=== PATIENT | female | born 1930 | race Caucasian/White ===

== ENCOUNTER 2019-08-17 23:11 | Emergency (ER) | payer MEDICARE, OTHER ==
--- NOTE | 2019-08-17 23:30 | ED Physician Documentation ---
History of Present Illness - Stated complaint Stated Complaint: left lower back pain - Chief complaint Chief Complaint: Back Pain - History obtained from History obtained from: Patient (The patient is an 89-year-old female who presents from an assisted living facility for 5-day history of lower back pain without fall or injury denies fevers, urinary incontinence denies any dysuria hematuria or flank pain she reports that she is having lower back pain bilateral lumbar region without bowel or bladder dysfunction no saddle anesthesia no urinary retention no history of IV drug abuse no history of spinal surgery.Reports she is able to ambulate with a walker at her baseline.) Review of Systems Constitutional: reports: Reviewed and negative Eyes: reports: Reviewed and negative Ears: reports: Reviewed and negative Nose: reports: Reviewed and negative Throat: reports: Reviewed and negative Cardiac: reports: Reviewed and negative Respiratory: reports: Reviewed and negative GI: reports: Reviewed and negative : reports: Reviewed and negative Skin: reports: Reviewed and negative Musculoskeletal: reports: Back pain Neurologic: reports: Reviewed and negative Psychiatric: reports: Reviewed and negative Endocrine: reports: Reviewed and negative Immunocompromised: reports: Reviewed and negative PD PAST MEDICAL HISTORY - Past Medical History Cardiovascular: Hypertension Respiratory: Asthma, Shortness of breath Endocrine/Autoimmune: None GI: None : Incontinence, Frequency HEENT: None Psych: None Musculoskeletal: Osteoarthritis Derm: None - Past Surgical History Past Surgical History: Yes 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: Hysterectomy, Oophrectomy - Present Medications Home Medications: Ambulatory Orders Medication Instructions Recorded Confirmed Losartan/Hydrochlorothiazide 1 each PO DAILY 08/28/15 08/17/19 [Hyzaar 50-12.5 Tablet] - Allergies Allergies/Adverse Reactions: Allergies Allergy/AdvReac Type Severity Reaction Status Date / Time No Known Drug Allergies Allergy Verified 08/29/15 20:11 - Social History Does the pt smoke?: No Smoking Status: Never smoker Does the pt drink ETOH?: No Does the pt have substance abuse?: No PD ED PE NORMAL - Vitals Vital signs reviewed: Yes - General General: Alert and oriented X 3, No acute distress, Well developed/nourished - HEENT HEENT: Atraumatic, PERRL, Moist mucous membranes, Pharynx benign, Dentition benign - Neck Neck: Supple, no meningeal sign - Cardiac Cardiac: RRR, No murmur, Strong equal pulses - Respiratory Respiratory: No respiratory distress, Clear bilaterally, Other - Abdomen Abdomen: Normal bowel sounds, Soft, Non tender, Non distended - Back Back: No CVA TTP, No spinal TTP, Other (There is point tenderness over bilateral sacroiliac joints. 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, No motor deficit, No sensory deficit, Normal speech - Psych Psych: Normal mood, Normal affect Results - Vitals Vitals: Vital Signs - 24 hr 08/17/19 23:19 Temperature 36.2 C L Heart Rate 67 Respiratory 16 Rate Blood Pressure 137/89 H O2 Saturation 97 Oxygen O2 Source Room air - Labs Labs: Laboratory Tests 08/18/19 00:06 Urine Color YELLOW Urine Clarity CLEAR Urine pH 5.5 Ur Specific [place] 1.020 Urine Protein NEGATIVE Urine Glucose (UA) NEGATIVE Urine Ketones NEGATIVE Urine Occult Blood NEGATIVE Urine Nitrite NEGATIVE Urine Bilirubin NEGATIVE Urine Urobilinogen 0.2 (NORMAL) Ur Leukocyte Esterase NEGATIVE Ur Microscopic Review NOT INDICATED Urine Culture Comments NOT INDICATED PD MEDICAL DECISION MAKING - ED course Complexity details: considered differential (Patient with reproducible back pain with pinpoint tenderness to bilateral sacroiliac joints. She has No red flags on history or physical exam. Her radiographs show degenerative joint disease.Patient has not tried any treatment prior to arrival we will provide an intramuscular injection of steroids and discharge this patient with close follow-up.) Departure - Departure Disposition: 01 Home, Self Care Clinical Impression: Sacroiliac inflammation, DJD (degenerative joint disease), lumbosacral Condition: Stable Instructions: ED Degenerative Joint Disease Follow-Up: Mary Johnson DO [Primary Care Provider] - Within 1 week
--- NOTE | 2019-08-18 00:13 | XRAY Report ---
Reason: pain Procedure Date: 08/18/2019 Accession Number: [id number] / [id number] Procedure: XR - Lumbar Spine 2 View CPT Code: Final Report FULL RESULT: EXAM: LUMBOSACRAL SPINE RADIOGRAPHY EXAM DATE: 08/18/2019 12:03 AM. CLINICAL HISTORY: Pain. COMPARISONS: None. TECHNIQUE: 3 views. FINDINGS: Alignment: Curvature of the lumbar spine with convexity to the right centered at L2. No subluxations. Bones: Vertebral body heights are maintained, with no obvious fractures identified. Degenerative endplate changes are present throughout. Disks: Disk height loss at every level. Facets: Facet arthropathy at L4-L5 and L5-S1, with lesser involvement in the upper lumbar spine. Sacroiliac Joints: Unremarkable. Soft Tissues: Normal. The visualized bowel gas pattern is normal. IMPRESSION: Multilevel degenerative disk disease, no fracture or vertebral body height loss is identified. If symptoms persist, consider MRI which would be more sensitive for subtle compression fractures. [facility]
[2019-08-18 00:25] LABS: BILIRUBIN,URINE NEGATIVE (NEGATIVE); CLARITY,URINE CLEAR (CLEAR); GLUCOSE, URINE (UA) NEGATIVE (NEGATIVE); KETONES,URINE (UA) NEGATIVE (NEGATIVE); LEUKOCYTE ESTERASE, URINE NEGATIVE (NEGATIVE); NITRITE,URINE NEGATIVE (NEGATIVE); OCCULT BLOOD,URINE NEGATIVE (NEGATIVE); PH,URINE 5.5 PH (5.0-7.5); PROTEIN,URINE NEGATIVE (NEGATIVE); UROBILINOGEN,URINE 0.2 (NORMAL) E.U./dL (NORMAL)
[2019-08-18] MEDS ORDERED: DEXAMETHASONE 10 MG/ML VIAL IM STA (00:32)
[2019-08-18 00:57] VITALS: BP 168/72
== END 2019-08-18 00:57 | disposition home or self-care (01) ==
LOC: ED 23:11
DX: M46.1 Sacroiliitis, not elsewhere classified (principal); M47.897 Other spondylosis, lumbosacral region; I10 Essential (primary) hypertension
CPT/HCPCS: 72100; 81001; 81003; 87086; 96372; 99283; 99284

== ENCOUNTER 2021-09-25 09:39 | Outpatient (CLI) | payer MEDICARE, OTHER, MEDICAID | END 2021-09-25 09:40 | disposition critical access hospital (66) | LOC: EMS 09:39 | DX: R60.1 Generalized edema (principal); M79.662 Pain in left lower leg; M79.661 Pain in right lower leg | CPT/HCPCS: A0425; A0429 ==

== ENCOUNTER 2021-09-25 09:57 | Emergency (ER) | payer MEDICARE, OTHER, MEDICAID ==
--- NOTE | 2021-09-25 10:10 | ED Physician Documentation ---
History of Present Illness - Stated complaint Stated Complaint: LEG SWELLING/PAIN - Chief complaint Chief Complaint: Cardiac - History obtained from History obtained from: Patient, EMS - Additonal information Additional information: 89-year-old female with a history of dementia is brought to the emergency department by paramedics with a chief complaint of anasarca and weeping. The patient is a DO NOT RESUSCITATE comfort measures only patient and she appears uncomfortable with the amount of swelling that she has. She is complaining of some pain to the back of her calf on the right side. Review of Systems Unable to obtain: Confused, Dementia, Other (very hard of hearing) Constitutional: denies: Fever Ears: reports: Loss of hearing (similar to always). 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, Oophrectomy - Present Medications Home Medications: Ambulatory Orders Medication Instructions Recorded Confirmed Losartan [Cozaar] 50 mg PO DAILY 09/25/21 09/25/21 hydroCHLOROthiazide [Hydrodiuril] 12.5 mg PO DAILY 09/25/21 09/25/21 - Allergies Allergies/Adverse Reactions: Allergies Allergy/AdvReac Type Severity Reaction Status Date / Time adhesive tape Allergy Hives Verified 09/25/21 10:06 - Social History Does the pt smoke?: No Smoking Status: Never smoker Does the pt drink ETOH?: No Does the pt have substance abuse?: No - Immunizations Immunizations are current?: No PD ED PE NORMAL - Vitals Vital signs reviewed: Yes - General General: No acute distress, Well developed/nourished, Other (pale appearing female is hard of hearing but seems agreeable and does not appear to be in distress. ) - HEENT HEENT: Atraumatic, PERRL, EOMI, Other (pale conjunctiva) - Neck Neck: Supple, no meningeal sign, No bony TTP - Cardiac Cardiac: RRR, No murmur - Respiratory Respiratory: No respiratory distress, Clear bilaterally - Abdomen Abdomen: Soft, Non tender - Back Back: No CVA TTP, No spinal TTP - Derm Derm: Warm and dry, Other (pale ) - Extremities Extremities: No deformity, Other (edema to all ext weeping in the LE bilat. 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, No motor deficit, No sensory deficit, Normal speech Eye Opening: Spontaneous Motor: Obeys Commands Verbal: Confused GCS Score: 14 - Psych Psych: Normal mood, Normal affect Results - Vitals Vitals: Vital Signs - 24 hr 09/25/21 09/25/21 09/25/21 10:01 12:05 14:00 Temperature 36.4 C L 36.5 C 36.5 C Heart Rate 74 70 75 Respiratory 16 12 12 Rate Blood Pressure 112/47 L 114/50 L 124/69 O2 Saturation 100 100 100 Oxygen O2 Source Room air - Labs Labs: Laboratory Tests 09/25/21 09/25/21 09/25/21 11:57 11:57 11:57 WBC 8.7 RBC 3.58 L Hgb 10.9 L Hct 33.5 L MCV 93.6 MCH 30.4 MCHC 32.5 RDW 15.1 H Plt Count 170 MPV 11.2 H Neut # (Auto) 5.8 Lymph # (Auto) 1.7 [place] # (Auto) 0.8 Eos # (Auto) 0.2 Baso # (Auto) 0.1 Absolute Nucleated RBC 0.00 Nucleated RBC % 0.0 PT INR APTT Sodium 135 Potassium 4.2 Chloride 103 Carbon Dioxide 22 Anion Gap 10.0 BUN 16 Creatinine 0.9 Estimated GFR (MDRD) 59 L Glucose 80 Calcium 8.3 L Total Bilirubin 0.8 AST 20 ALT 14 Alkaline Phosphatase 85 B-Natriuretic Peptide Total Protein 6.1 L Albumin 2.9 L Globulin 3.2 Albumin/Globulin Ratio 0.9 L Lipase 28 TSH 3.55 Blood Type Antibody Screen 09/25/21 09/25/21 09/25/21 11:57 11:57 12:11 WBC RBC Hgb Hct MCV MCH MCHC RDW Plt Count MPV Neut # (Auto) Lymph # (Auto) [place] # (Auto) Eos # (Auto) Baso # (Auto) Absolute Nucleated RBC Nucleated RBC % PT 11.4 INR 1.0 APTT 20.2 L Sodium Potassium Chloride Carbon Dioxide Anion Gap BUN Creatinine Estimated GFR (MDRD) Glucose Calcium Total Bilirubin AST ALT Alkaline Phosphatase B-Natriuretic Peptide 531 H Total Protein Albumin Globulin Albumin/Globulin Ratio Lipase TSH Blood Type A POSITIVE Antibody Screen NEGATIVE Procedures - IVC sono (time) 1005 Bedside IVC sono: IVC measures (cm) (1.24), Dehydration (est <1 liter) PD MEDICAL DECISION MAKING - ED course Complexity details: reviewed old records, reviewed results, re-evaluated marcial nt, considered differential, d/w patient ED course: 89-year-old female hard of hearing with dementia who is comfort measures presents to the emergency department with anasarca with some weeping on her legs and she appears pale. Her laboratory studies are unremarkable with the exception of some low albumin and total protein. Her kidney function is normal, her BNP is minimally elevated but her IVC collapses normally. Her closest friend is Jason who sees her about every other week. He asked the nurses at [place] to check on her legs as they appear to be weeping. She presents here today not knowing why she is here. I consulted our hospitalist about treatment of this anasarca and she recommended cleaning the weeping areas and applying compression dressing with daily changes and avoiding diuretic use. Departure - Departure Disposition: 01 Home, Self Care Clinical Impression: Anasarca Condition: Stable Instructions: ED Edema Legs Bilateral Follow-Up: Mana King PA-C [Primary Care Provider] - Comments: Apple, today it looks like the swelling you have in general is worse than usual. There is some weeping to your legs and we have cleaned this up and dr essed the legs with some compression dressing. This will help the swelling. This type of dressing should be replaced daily. The expectation is reduced swelling in your lower extremities and resolution of the weeping. No additional medications will be required today.
--- NOTE | 2021-09-25 12:05 | CONSULTATION NOTE ---
Consultation Report: called in by Dr. Velazquez to assist with IV placement. Attempted PIVx2 in bilat upper extremeties with US guidance. Unable to place. Called patient's son, Andres, to get consent for CVL insertion. Attempted x1 stick in right IJ. Wire would not thread past about 10 cm. Left short catheter in place to use. Notified RN and Dr. Velazquez that this line is a PIV in Right IJ and not centrally located.
[2021-09-25 12:06] LABS: BASOPHILS # (AUTO) 0.1 10^3/uL (0.0-0.1); BASOPHILS % (AUTO) 0.6 %; EOSINOPHILS # (AUTO) 0.2 10^3/uL (0.0-0.7); EOSINOPHILS % (AUTO) 2.2 %; HCT - HEMATOCRIT 33.5 % (37.0-47.0); HGB - HEMOGLOBIN 10.9 g/dL (12.0-16.0); LYMPHOCYTES # (AUTO) 1.7 10^3/uL (1.5-3.5); LYMPHOCYTES % (AUTO) 20.1 %; MEAN CORPUSCULAR HEMOGLOBIN 30.4 pg (27.0-31.0); MEAN CORPUSCULAR HGB CONC 32.5 g/dL (32.0-36.0); MEAN CORPUSCULAR VOLUME 93.6 fL (81.0-99.0); MEAN PLATELET VOLUME 11.2 fL (7.9-10.8); MONOCYTES # (AUTO) 0.8 10^3/uL (0.0-1.0); MONOCYTES % (AUTO) 9.6 %; NEUTROPHILS # (AUTO) 5.8 10^3/uL (1.5-6.6); NEUTROPHILS % (AUTO) 67.2 %; PLT - PLATELET COUNT 170 10^3/uL (130-450); RED BLOOD COUNT 3.58 10^6/uL (4.20-5.40); RED CELL DISTRIBUTION WIDTH 15.1 % (12.0-15.0); WHITE BLOOD COUNT 8.7 x10^3/uL (4.8-10.8)
[2021-09-25 12:18] LABS: PT - PROTHROMBIN TIME 11.4 secs (9.9-12.6)
[2021-09-25 12:25] LABS: PARTIAL THROMBOPLASTIN TIME 20.2 secs (24.9-33.3)
[2021-09-25 12:27] LABS: ALBUMIN 2.9 g/dL (3.2-5.5); ALBUMIN/GLOBULIN RATIO 0.9 (1.0-2.2); BILIRUBIN,TOTAL 0.8 mg/dL (0.2-1.0); CALCIUM 8.3 mg/dL (8.5-10.3); CREATININE 0.9 mg/dL (0.4-1.0); POTASSIUM 4.2 mmol/L (3.5-5.0); TOTAL PROTEIN 6.1 g/dL (6.7-8.2)
[2021-09-25] MEDS ORDERED: FUROSEMIDE 40 MG/4 ML VIAL IVP STA (12:53)
[2021-09-25 14:47] LABS: BILIRUBIN,URINE NEGATIVE (NEGATIVE); GLUCOSE, URINE (UA) NEGATIVE (NEGATIVE); KETONES,URINE (UA) NEGATIVE (NEGATIVE); LEUKOCYTE ESTERASE, URINE NEGATIVE (NEGATIVE); NITRITE,URINE NEGATIVE (NEGATIVE); OCCULT BLOOD,URINE NEGATIVE (NEGATIVE); PROTEIN,URINE NEGATIVE (NEGATIVE); UROBILINOGEN,URINE 0.2 (NORMAL) E.U./dL (NORMAL)
[2021-09-25 14:48] LABS: CLARITY,URINE CLEAR (CLEAR)
[2021-09-25 15:18] VITALS: BP 139/127
== END 2021-09-25 16:03 | disposition home or self-care (01) ==
LOC: EDUNIT# → ED 09:57
DX: R60.1 Generalized edema (principal); Z66 Do not resuscitate; F03.90 Unspecified dementia, unspecified severity, without behavioral disturbance, psychotic disturbance, mood disturbance, and anxiety; I10 Essential (primary) hypertension
CPT/HCPCS: 36415; 80053; 81001; 81003; 83690; 83880; 84443; 85025; 85610; 85730; 86850; 86900; 86901; 87086; 96374; 99283

== ENCOUNTER 2021-09-25 16:02 | Outpatient (CLI) | payer MEDICARE, OTHER, MEDICAID | END 2021-09-25 16:03 | disposition home or self-care (01) | LOC: EMS 16:02 | PROVIDERS: ATTEND Emergency Medicine | DX: R41.0 Disorientation, unspecified (principal); R60.1 Generalized edema | CPT/HCPCS: A0425; A0428 ==

== ENCOUNTER 2021-10-01 17:02 | Emergency (ER) | payer MEDICARE, OTHER, MEDICAID ==
[2021-10-01 17:29] LABS: BASOPHILS % (AUTO) 0.5 %; EOSINOPHILS # (AUTO) 0.2 10^3/uL (0.0-0.7); EOSINOPHILS % (AUTO) 2.7 %; HCT - HEMATOCRIT 34.2 % (37.0-47.0); HGB - HEMOGLOBIN 11.4 g/dL (12.0-16.0); LYMPHOCYTES # (AUTO) 1.5 10^3/uL (1.5-3.5); LYMPHOCYTES % (AUTO) 18.6 %; MEAN CORPUSCULAR HEMOGLOBIN 31.1 pg (27.0-31.0); MEAN CORPUSCULAR HGB CONC 33.3 g/dL (32.0-36.0); MEAN CORPUSCULAR VOLUME 93.2 fL (81.0-99.0); MEAN PLATELET VOLUME 10.9 fL (7.9-10.8); MONOCYTES # (AUTO) 0.9 10^3/uL (0.0-1.0); MONOCYTES % (AUTO) 11.9 %; NEUTROPHILS # (AUTO) 5.2 10^3/uL (1.5-6.6); PLT - PLATELET COUNT 229 10^3/uL (130-450); RED BLOOD COUNT 3.67 10^6/uL (4.20-5.40); RED CELL DISTRIBUTION WIDTH 14.9 % (12.0-15.0); WHITE BLOOD COUNT 7.9 x10^3/uL (4.8-10.8)
[2021-10-01 17:40] VITALS: BP 102/40
[2021-10-01 17:40] LABS: ALBUMIN/GLOBULIN RATIO 0.8 (1.0-2.2); BILIRUBIN,TOTAL 0.7 mg/dL (0.2-1.0); CALCIUM 8.6 mg/dL (8.5-10.3); MAGNESIUM 2.1 mg/dL (1.7-2.8); POTASSIUM 4.3 mmol/L (3.5-5.0); TOTAL PROTEIN 6.6 g/dL (6.7-8.2)
[2021-10-01] MEDS ORDERED: ACETAMINOPHEN/CODEINE 300 MG/30 MG TABLET PO STA (19:11)
[2021-10-01] MEDS ORDERED: FUROSEMIDE 20 MG TABLET PO STA (19:11)
[2021-10-01] MEDS ORDERED: cephALEXin 250 MG CAPSULE PO STA (19:11)
--- NOTE | 2021-10-01 19:14 | ED Physician Documentation ---
PD HPI LOWER EXT INJURY - Stated complaint Stated Complaint: R LEG PX - Chief complaint Chief Complaint: Ext Problem - History obtained from History obtained from: Patient, Family - Additional information Additional information: 89-year-old woman seen by my partner last week for lymphedema. Now worsening edema with some redness and more weeping. No fevers. She is here with her friend Jason. She is fairly demented. 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, Oophrectomy - Present Medications Home Medications: Ambulatory Orders Medication Instructions Recorded Confirmed Losartan [Cozaar] 50 mg PO DAILY 09/25/21 09/25/21 hydroCHLOROthiazide [Hydrodiuril] 12.5 mg PO DAILY 09/25/21 09/25/21 Acetaminophen/Cod 300/30 [Tylenol 1 each PO Q4-6H PRN #10 tablet 10/01/21 #3] Furosemide [Lasix] 20 mg PO DAILY #5 tablet 10/01/21 Potassium Chloride [Klor-Con 10] 10 meq PO DAILY #5 tab 10/01/21 cephALEXin [Keflex] 500 mg PO Q6H #28 cap 10/01/21 - Allergies Allergies/Adverse Reactions: Allergies Allergy/AdvReac Type Severity Reaction Status Date / Time adhesive tape Allergy Hives Verified 09/25/21 10:06 - Social History Does the pt smoke?: No Smoking Status: Never smoker Does the pt drink ETOH?: No Does the pt have substance abuse?: No - Immunizations Immunizations are current?: No PD ED PE NORMAL - Vitals Vital signs reviewed: Yes - General General: Other (Alert and oriented to person and place but not time or events) - Back Back: No CVA TTP, No spinal TTP - Extremities Extremities: Other (She has weeping lymphedema with some cellulitis especially right posteromedial calf.) - Psych Psych: Normal mood, Normal affect Results - Vitals Vitals: Vital Signs - 24 hr 10/01/21 10/01/21 17:31 19:57 Temperature 36.6 C 36.9 C Heart Rate 83 82 Respiratory 18 14 Rate Blood Pressure 102/40 L O2 Saturation 97 97 Oxygen O2 Source Room air - Labs Labs: Laboratory Tests 10/01/21 10/01/21 10/01/21 17:22 17:22 17:22 WBC 7.9 RBC 3.67 L Hgb 11.4 L Hct 34.2 L MCV 93.2 MCH 31.1 H MCHC 33.3 RDW 14.9 Plt Count 229 MPV 10.9 H Neut # (Auto) 5.2 Lymph # (Auto) 1.5 [place] # (Auto) 0.9 Eos # (Auto) 0.2 Baso # (Auto) 0.0 Absolute Nucleated RBC 0.00 Nucleated RBC % 0.0 Sodium 136 Potassium 4.3 Chloride 104 Carbon Dioxide 23 Anion Gap 9.0 BUN 23 H Creatinine 1.0 Estimated GFR (MDRD) 52 L Glucose 101 H Calcium 8.6 Magnesium 2.1 Total Bilirubin 0.7 AST 25 ALT 16 Alkaline Phosphatase 85 B-Natriuretic Peptide 417 H Total Protein 6.6 L Albumin 3.0 L Globulin 3.6 Albumin/Globulin Ratio 0.8 L PD MEDICAL DECISION MAKING - ED course ED course: 89-year-old woman with lymphedema of the right leg now with some cellulitis. When queried to they are not really doing any wound care at [place] and specific wound care instructions were given. In addition we will add some Keflex and Lasix. No sign of severe necrotizing infection. Departure - Departure Disposition: 01 Home, Self Care Clinical Impression: Cellulitis Condition: Good Record reviewed to determine appropriate education?: Yes Instructions: Cellulitis Dc Prescriptions: cephALEXin [Keflex] 500 mg PO Q6H #28 cap Potassium Chloride [Klor-Con 10] 10 meq PO DAILY #5 tab Furosemide [Lasix] 20 mg PO DAILY #5 tablet Acetaminophen/Cod 300/30 [Tylenol #3] 1 each PO Q4-6H PRN #10 tablet PRN Reason: Pain Comments: For wound care, once a day the area should be washed with soap and water, then gently blotted dry. Then you should place Xeroform over the open areas, and then a compression wrap starting with cotton starting the toes and then going up to the knee circumferentially and then an Jose Luis wrap similarly. As much as possible her leg should be elevated and not allowed to hang. Call your doctor to arrange a follow-up appointment, make the next available appointment. In the interim, return anytime if worse or if new symptoms develop. I sent prescriptions electronically to [facility] in [place]. Discharge Date/Time: 10/01/21 19:57
== END 2021-10-01 19:57 | disposition home or self-care (01) ==
LOC: ED 17:02
DX: L03.115 Cellulitis of right lower limb (principal); F03.90 Unspecified dementia, unspecified severity, without behavioral disturbance, psychotic disturbance, mood disturbance, and anxiety
CPT/HCPCS: 36415; 80053; 83735; 83880; 85025; 99282; 99284; A9270

== ENCOUNTER 2021-11-05 15:19 | Outpatient (CLI) | payer OTHER, MEDICAID | END 2021-11-05 15:20 | disposition critical access hospital (66) | LOC: EMS 15:19 | DX: R60.0 Localized edema (principal); M79.89 Other specified soft tissue disorders; L89.159 Pressure ulcer of sacral region, unspecified stage; R19.7 Diarrhea, unspecified; R53.1 Weakness; W18.30XA Fall on same level, unspecified, initial encounter; Y92.099 Unspecified place in other non-institutional residence as the place of occurrence of the external cause | CPT/HCPCS: A0425; A0427 ==

== ENCOUNTER 2021-11-05 15:38 | Inpatient (IN) | payer MEDICAID, MEDICARE, OTHER ==
[2021-11-05] MEDS ORDERED: SODIUM CHLORIDE 0.9% 1,000 ML IV STA (15:56)
--- NOTE | 2021-11-05 15:56 | ED Physician Documentation ---
History of Present Illness - Stated complaint Stated Complaint: GLF - Chief complaint Chief Complaint: General - History obtained from History obtained from: EMS - Additonal information Additional information: This is an 89-year-old woman with history of dementia and hypertension who presents by ambulance for a fall. Although she has a history of dementia have seen her before, and she is significantly less talkative than usual. The mechanism of the fall is unknown and she was found down at [place]. She was noted to be hypotensive prior to arrival and presents by ambulance for this complaining only of pain all over. She is unable to give any other history. Review of Systems Unable to obtain: Confused PD PAST MEDICAL HISTORY - Past Medical History Cardiovascular: Hypertension Respiratory: Asthma, Shortness of breath Endocrine/Autoimmune: None GI: None : Incontinence, Frequency HEENT: None Psych: None Musculoskeletal: Osteoarthritis Derm: None - Past Surgical History Past Surgical History: Yes General: Appendectomy /UNIT CLERK: Hysterectomy, Oophrectomy - Present Medications Home Medications: Ambulatory Orders Medication Instructions Recorded Confirmed Losartan [Cozaar] 50 mg PO DAILY 09/25/21 09/25/21 hydroCHLOROthiazide [Hydrodiuril] 12.5 mg PO DAILY 09/25/21 09/25/21 - Allergies Allergies/Adverse Reactions: Allergies Allergy/AdvReac Type Severity Reaction Status Date / Time adhesive tape Allergy Hives Verified 11/05/21 15:47 - Social History Does the pt smoke?: No Smoking Status: Never smoker Does the pt drink ETOH?: No Does the pt have substance abuse?: No - Immunizations Immunizations are current?: No PD ED PE NORMAL - Vitals Vital signs reviewed: Yes - General General: Other (She is alert and oriented to person but not place time or events she is somnolent but will open her eyes and follow commands. She is disheveled and covered in liquid stool.) - HEENT HEENT: PERRL, EOMI - Neck Neck: Supple, no meningeal sign, No bony TTP - Cardiac Cardiac: RRR, No murmur - Respiratory Respiratory: No respiratory distress, Clear bilaterally - Abdomen Abdomen: Normal bowel sounds, Soft, Non tender - Derm Derm: Normal color, Warm and dry, Other (There is a grade 3+ sacral pressure ulcer with signs of infection. There is a broad granulating wound on the right posteromedial calf) - Extremities Extremities: Other (She has moderate anasarca with edema of upper and lower extremities.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: No motor deficit, No sensory deficit Eye Opening: To Voice Motor: Obeys Commands Verbal: Confused GCS Score: 13 Results - Vitals Vitals: Vital Signs - 24 hr 11/05/21 11/05/21 11/05/21 15:47 15:50 15:52 Temperature 36.5 C 36.5 C 36.5 C Heart Rate 88 88 88 Respiratory 16 16 16 Rate Blood Pressure 80/50 L 80/50 L 80/50 L O2 Saturation 98 98 98 11/05/21 11/05/21 11/05/21 16:20 16:30 17:01 Temperature Heart Rate 78 88 60 Respiratory 16 16 14 Rate Blood Pressure 105/43 L 104/43 L 74/62 L O2 Saturation 100 100 98 11/05/21 17:31 Temperature Heart Rate 60 Respiratory 16 Rate Blood Pressure 66/48 L O2 Saturation 94 Oxygen O2 Source Room air - EKG (time done) 1606 Rate: Rate (enter#) (39) Rhythm: Sinus bradycardia [place]: Normal QRS: Low voltage Ischemia: Non specific changes. No: ST elevation c/w ischemia, ST depression - Labs Labs: Laboratory Tests 11/05/21 11/05/21 11/05/21 16:05 16:05 16:05 WBC 11.8 H RBC 3.50 L Hgb 10.9 L Hct 32.0 L MCV 91.4 MCH 31.1 H MCHC 34.1 RDW 15.9 H Plt Count 272 MPV 10.4 Neut # (Auto) 10.0 H Lymph # (Auto) 1.0 L Ross # (Auto) 0.7 Eos # (Auto) 0.0 Baso # (Auto) 0.0 Absolute Nucleated RBC 0.03 Nucleated RBC % 0.3 VBG pH VBG pCO2 VBG pO2 VBG HCO3 VBG Total CO2 VBG O2 Saturation VBG Base Excess Sodium 134 L Potassium 3.4 L Chloride 102 Carbon Dioxide 12 L* Anion Gap 20.0 H BUN 68 H Creatinine 3.4 H Estimated GFR (MDRD) 13 L Glucose 98 Lactic Acid 2.6 H Calcium 8.0 L Total Bilirubin 1.0 AST 37 ALT 23 Alkaline Phosphatase 59 B-Natriuretic Peptide Total Protein 5.8 L Albumin 2.7 L Globulin 3.1 Albumin/Globulin Ratio 0.9 L Urine Color Urine Clarity Urine pH Ur Specific [place] Urine Protein Urine Glucose (UA) Urine Ketones Urine Occult Blood Urine Nitrite Urine Bilirubin Urine Urobilinogen Ur Leukocyte Esterase Urine RBC Urine WBC Ur Squamous Epith Cells Urine Bacteria Urine Culture Comments Nasal Adenovirus (PCR) Nasal B. parapertussis DNA (PCR) Nasal Coronavir 229E PCR Nasal Coronavir HKU1 PCR Nasal Coronavir NL63 PCR Nasal Coronavir OC43 PCR Nasal Enterovir/Rhinovir PCR Nasal Influenza B PCR Nasal Influenza A PCR Nasal Parainfluen 1 PCR Nasal Parainfluen 2 PCR Nasal Parainfluen 3 PCR Nasal Parainfluen 4 PCR Nasal RSV (PCR) Nasal B.pertussis DNA PCR Nasal C.pneumoniae (PCR) Tyson Human Metapneumo PCR Nasal M.pneumoniae (PCR) Nasal SARS-CoV-2 (PCR) Ethyl Alcohol 7.3 11/05/21 11/05/21 11/05/21 16:05 16:50 16:58 WBC RBC Hgb Hct MCV MCH MCHC RDW Plt Count MPV Neut # (Auto) Lymph # (Auto) Ross # (Auto) Eos # (Auto) Baso # (Auto) Absolute Nucleated RBC Nucleated RBC % VBG pH VBG pCO2 VBG pO2 VBG HCO3 VBG Total CO2 VBG O2 Saturation VBG Base Excess Sodium Potassium Chloride Carbon Dioxide Anion Gap BUN Creatinine Estimated GFR (MDRD) Glucose Lactic Acid Calcium Total Bilirubin AST ALT Alkaline Phosphatase B-Natriuretic Peptide 746 H Total Protein Albumin Globulin Albumin/Globulin Ratio Urine Color DARK YELLOW Urine Clarity CLEAR Urine pH 5.5 Ur Specific [place] >=1.030 H Urine Protein TRACE Urine Glucose (UA) NEGATIVE Urine Ketones TRACE Urine Occult Blood TRACE-INTA Urine Nitrite NEGATIVE Urine Bilirubin NEGATIVE Urine Urobilinogen 0.2 (NORMAL) Ur Leukocyte Esterase TRACE H Urine RBC 0-5 Urine WBC 6-10 H Ur Squamous Epith Cells FEW Squamous Urine Bacteria Moderate H Urine Culture Comments INDICATED Nasal Adenovirus (PCR) NOT DETECTED Nasal B. parapertussis DNA (PCR) NOT DETECTED Nasal Coronavir 229E PCR NOT DETECTED Nasal Coronavir HKU1 PCR NOT DETECTED Nasal Coronavir NL63 PCR NOT DETECTED Nasal Coronavir OC43 PCR NOT DETECTED Nasal Enterovir/Rhinovir PCR NOT DETECTED Nasal Influenza B PCR NOT DETECTED Nasal Influenza A PCR NOT DETECTED Nasal Parainfluen 1 PCR NOT DETECTED Nasal Parainfluen 2 PCR NOT DETECTED Nasal Parainfluen 3 PCR NOT DETECTED Nasal Parainfluen 4 PCR NOT DETECTED Nasal RSV (PCR) NOT DETECTED Nasal B.pertussis DNA PCR NOT DETECTED Nasal C.pneumoniae (PCR) NOT DETECTED Tyson Human Metapneumo PCR NOT DETECTED Nasal M.pneumoniae (PCR) NOT DETECTED Nasal SARS-CoV-2 (PCR) NOT DETECTED Ethyl Alcohol 11/05/21 17:23 WBC RBC Hgb Hct MCV MCH MCHC RDW Plt Count MPV Neut # (Auto) Lymph # (Auto) Ross # (Auto) Eos # (Auto) Baso # (Auto) Absolute Nucleated RBC Nucleated RBC % VBG pH 7.207 L VBG pCO2 26.2 L VBG pO2 56.4 H VBG HCO3 10.2 L VBG Total CO2 11.0 L VBG O2 Saturation 85.2 H VBG Base Excess -16.2 L Sodium Potassium Chloride Carbon Dioxide Anion Gap BUN Creatinine Estimated GFR (MDRD) Glucose Lactic Acid Calcium Total Bilirubin AST ALT Alkaline Phosphatase B-Natriuretic Peptide Total Protein Albumin Globulin Albumin/Globulin Ratio Urine Color Urine Clarity Urine pH Ur Specific [place] Urine Protein Urine Glucose (UA) Urine Ketones Urine Occult Blood Urine Nitrite Urine Bilirubin Urine Urobilinogen Ur Leukocyte Esterase Urine RBC Urine WBC Ur Squamous Epith Cells Urine Bacteria Urine Culture Comments Nasal Adenovirus (PCR) Nasal B. parapertussis DNA (PCR) Nasal Coronavir 229E PCR Nasal Coronavir HKU1 PCR Nasal Coronavir NL63 PCR Nasal Coronavir OC43 PCR Nasal Enterovir/Rhinovir PCR Nasal Influenza B PCR Nasal Influenza A PCR Nasal Parainfluen 1 PCR Nasal Parainfluen 2 PCR Nasal Parainfluen 3 PCR Nasal Parainfluen 4 PCR Nasal RSV (PCR) Nasal B.pertussis DNA PCR Nasal C.pneumoniae (PCR) Tyson Human Metapneumo PCR Nasal M.pneumoniae (PCR) Nasal SARS-CoV-2 (PCR) Ethyl Alcohol PD MEDICAL DECISION MAKING - ED course ED course: I called her son Hosea by phone at [phone] after initial evaluation to assess goals of care given that she comes accompanied with a full POLST form that recommends comfort measures only. He would like some prognostic information noting that his mother has had a decline recently, but I will call him back prior to instituting any aggressive therapies. Work-up here demonstrated significant acidosis, acute renal failure, potential sepsis, osteomyelitis of the coccyx Related to sacral pressure ulcer and a thyroid lesion and lymph nodes in the chest and belly that Are not definitely but certainly could be malignant. I had a long talk with the son by phone about this. He has been speaking with his siblings in the interim and after discussion would like to pursue hospice. I notified our hospice medical center director, Dr. Allie Mcfarlane who agrees the patient would be appropriate for a GIP admit. Short bed situation in the hospital due to staffing right now. That said she was able to write orders and the patient will be admitted for GIP and comfort care. Note that although she is in septic shock, goals of care Are not concordant with usual sepsis care including but not limited to 30 mill per kilo fluid bolus or antibiotics. CT Head: IMPRESSION: CT head without acute intracranial abnormalities. No acute calvarial fractures. Age- related senescent changes and sequela chronic small vessel ischemic disease. CT C Spine 1. CT cervical spine without acute fracture or traumatic malalignment. 2. Moderate multilevel cervical spondylosis. 3. Numerous suspicious bilateral cervical chain adenopathy more pronounced on the left with suspicious left superior axillary adenopathy. Recommend correlation for clinical history of prior malignancy. 4. Large left thyroid gland hypodense lesion measuring 3.2 x 2.2 cm in size. Recommend nonemergent thyroid ultrasound for further evaluation. CT CHEST 1. No gross acute rib fracture. No acute compression fracture is seen in thoracic spine. 2. A few scattered atelectasis in bilateral lung rao. No focal infiltrate, pleural effusion or pneumothorax. 3. Nonspecific borderline enlarged mediastinal lymph nodes. Are clear enlarged bilateral axillary lymph nodes which may indicate reactive inflammatory lymphadenopathy. Malignant process cannot be excluded suggest clinical correlation. 4. Dense atherosclerotic calcifications were acquired and vessels and thoracic aorta. No thoracic aortic aneurysm. No mediastinal hematoma. 5. Enlarged left thyroid lobe with suggestion of hypodense thyroid nodule which may indicate thyroid goiter. Ct Abd/pel: 1. Midline posterior sacral decubitus ulcer with extension to the level of the coccyx. 2. Probable associated osteomyelitis of the coccyx. 3. Severe atherosclerotic change. 4. Bilateral enlarged inguinal lymph nodes, question reactive versus malignant. Departure - Departure Disposition: 66 [facility] DC/Xfer Clinical Impression: Acute osteomyelitis of coccyx, Delirium, Anasarca, Metabolic acidosis Sacral pressure ulcer Qualifiers: Pressure injury stage: stage 4 Qualified Code(s): L89.154 - Pressure ulcer of sacral region, stage 4 Acute renal failure Qualifiers: Acute renal failure type: unspecified Qualified Code(s): N17.9 - Acute kidney failure, unspecified Sepsis Qualifiers: Sepsis type: sepsis due to unspecified organism Sepsis acute organ dysfunction status: with acute organ dysfunction Severe sepsis acute organ dysfunction type: encephalopathy Severe sepsis shock status: with septic shock Qualified Code(s): A41.9 - Sepsis, unspecified organism Condition: Stable
[2021-11-05 16:17] LABS: BASOPHILS % (AUTO) 0.3 %; EOSINOPHILS % (AUTO) 0.3 %; HGB - HEMOGLOBIN 10.9 g/dL (12.0-16.0); LYMPHOCYTES % (AUTO) 8.6 %; MEAN CORPUSCULAR HEMOGLOBIN 31.1 pg (27.0-31.0); MEAN CORPUSCULAR HGB CONC 34.1 g/dL (32.0-36.0); MEAN CORPUSCULAR VOLUME 91.4 fL (81.0-99.0); MEAN PLATELET VOLUME 10.4 fL (7.9-10.8); MONOCYTES # (AUTO) 0.7 10^3/uL (0.0-1.0); MONOCYTES % (AUTO) 5.9 %; NEUTROPHILS % (AUTO) 84.3 %; NRBC ABSOLUTE COUNT (AUTO) 0.03 x10^3/uL; NUCLEATED RED BLOOD CELLS AUTO 0.3 /100WBC; PLT - PLATELET COUNT 272 10^3/uL (130-450); RED CELL DISTRIBUTION WIDTH 15.9 % (12.0-15.0); WHITE BLOOD COUNT 11.8 x10^3/uL (4.8-10.8)
[2021-11-05 16:32] LABS: LACTIC ACID, VENOUS 2.6 mmol/L (0.5-2.2)
[2021-11-05 16:42] LABS: ALBUMIN 2.7 g/dL (3.2-5.5); ALBUMIN/GLOBULIN RATIO 0.9 (1.0-2.2); CREATININE 3.4 mg/dL (0.4-1.0); ETOH - ETHANOL 7.3 mg/dL; POTASSIUM 3.4 mmol/L (3.5-5.0); TOTAL PROTEIN 5.8 g/dL (6.7-8.2)
--- NOTE | 2021-11-05 16:42 | CT Report ---
PROCEDURE: HEAD WO INDICATIONS: Head injury TECHNIQUE: Noncontrast 4.5 mm thick angled axial sections acquired from the foramen magnum to the vertex. For r adiation dose reduction, the following was used: automated exposure control, adjustment of mA and/or kV according to patient size. COMPARISON: None. FINDINGS: Image quality: Excellent. CSF spaces: Basal cisterns are patent. No extra-axial fluid collections. Ventricles are normal in size and shape. Brain: There cerebral volume loss for age with resultant ventricular and sulcal prominence. There ar e periventricular and deep white matter chronic small vessel ischemic changes. Atherosclerotic calcif ications are noted in the intracranial segments of the bilateral internal carotid arteries. No midline shift. No intracranial masses or hemorrhage. Serrano-white matter interface is normal. Skull and face: Calvarium and visualized facial bones are intact, without suspicious lesions. Sinuses: Visualized sinuses and mastoids are clear. IMPRESSION: CT head without acute intracranial abnormalities. No acute calvarial fractures. Age-rela janine senescent changes and sequela chronic small vessel ischemic disease. Reviewed by: Parish Taylor MD on 11/05/2021 4:41 PM PDT Approved by: Parish Taylor MD on 11/05/2021 4:41 PM PDT Station ID: [id number]
--- NOTE | 2021-11-05 16:52 | CT Report ---
PROCEDURE: CERVICAL SPINE WO INDICATIONS: neck injury TECHNIQUE: Noncontrast 3 mm thick sections acquired from the skull base to the T4 level. Sagittal and coronal r eformats were then constructed. For radiation dose reduction, the following was used: automated exp osure control, adjustment of mA and/or kV according to patient size. COMPARISON: None. FINDINGS: Image quality: Diagnostic. Bones: No acute fractures or dislocations. Craniocervical junction is intact. C1-C2 relationship is preserved. Moderate multilevel cervical spondylosis seen throughout the imaged spine. No suspicious o sseous lesions. Visualized superior ribs are intact. Soft tissues: Prevertebral soft tissues are normal in thickness. No paravertebral hematomas. No ap ical pneumothoraces. Visualized lung apices are clear. There are suspicious enlarged left axillary ly mph nodes with numerous enlarged lymph nodes in the bilateral cervical chain. This is most pronounced in the left neck. Largest node is seen adjacent to the hyoid measuring 1.9 x 1.4 cm in size. There i s also a large left-sided thyroid hypodense lesion measuring 3.2 x 2.2 cm in axial cross sectional di mension. IMPRESSION: 1. CT cervical spine without acute fracture or traumatic malalignment. 2. Moderate multilevel cervical spondylosis. 3. Numerous suspicious bilateral cervical chain adenopathy more pronounced on the left with suspiciou s left superior axillary adenopathy. Recommend correlation for clinical history of prior malignancy. 4. Large left thyroid gland hypodense lesion measuring 3.2 x 2.2 cm in size. Recommend nonemergent th yroid ultrasound for further evaluation. Reviewed by: Parish Taylor MD on 11/05/2021 4:51 PM PDT Approved by: Parish Taylor MD on 11/05/2021 4:51 PM PDT Station ID: [id number]
--- NOTE | 2021-11-05 16:54 | CT Report ---
PROCEDURE: CHEST WO INDICATIONS: chest wall injury TECHNIQUE: Noncontrast 1mm axial images were acquired from the pulmonary apices to the posterior costophrenic an gles. Axial 5 mm soft tissue kernel reconstructions were performed as well as 8 mm axial MIP and cor onal and sagittal 5 mm reformations. For radiation dose reduction, the following was used: automate d exposure control, adjustment of mA and/or kV according to patient size. COMPARISON: None FINDINGS: Image quality: Excellent. Lungs and pleura: No acute air space opacities. A few atelectasis are seen scattered in posterior as pect of bilateral lung rao. Tiny calcified granuloma in lateral aspect of left lung base is seen s eries 3 image 229. No pleural effusions or pneumothorax. Central and peripheral airways are patent a nd normal in caliber. Mediastinum: Heart size is normal. No pericardial effusion. Dense atherosclerotic calcifications ar e noted throughout coronary vessels and thoracic aorta. Thoracic aorta ankle pulmonary arteries are n ormal in size. Borderline enlarged mediastinal lymph nodes are seen measures up to 1 cm in short axis diameter in right paratracheal space series 2 image 24. No gross hilar lymphadenopathy by size crite vibha. Esophagus is normal in caliber. No hiatal hernia. Bones and chest wall: Enlarged left thyroid lobe is seen with large hypodense nodule involving mid to lower pole of left thyroid lobe extending to left superior mediastinum measures 2.9 x 3.2 cm in size series 2 image 8. Enlarged bilateral axillary lymph nodes are seen and measures up to 2.5 x 3.1 cm i n size in left axilla series 2 image 17 and 2 x 2.5 cm in size in right axilla series 2 image 13. No definite supraclavicular lymphadenopathy is seen. No acute thoracic spine vertebral body compression fracture. Degenerative disc disease throughout thoracic spine is seen. No gross acute rib fracture. N o suspicious intraosseous lesion. Abdomen: Please correlate with CT of abdomen and pelvis findings. IMPRESSION: 1. No gross acute rib fracture. No acute compression fracture is seen in thoracic spine. 2. A few scattered atelectasis in bilateral lung rao. No focal infiltrate, pleural effusion or pne umothorax. 3. Nonspecific borderline enlarged mediastinal lymph nodes. Are clear enlarged bilateral axillary lym ph nodes which may indicate reactive inflammatory lymphadenopathy. Malignant process cannot be exclud ed suggest clinical correlation. 4. Dense atherosclerotic calcifications were acquired and vessels and thoracic aorta. No thoracic aor tic aneurysm. No mediastinal hematoma. 5. Enlarged left thyroid lobe with suggestion of hypodense thyroid nodule which may indicate thyroid goiter. CLINICAL RECOMMENDATION STATEMENTS: In patients <35 years with an ITN detected on CT, MRI, or extrathyroidal ultrasound, the Committee re commends further evaluation with dedicated thyroid ultrasound if the nodule is "e1 cm and has no susp icious imaging features, and if the patient has normal life expectancy. In patients "e35 years with an ITN detected on CT, MRI, or extrathyroidal ultrasound, the Committee r ecommends further evaluation with dedicated thyroid ultrasound if the nodule is "e1.5 cm and has no s uspicious imaging features, and if the patient has normal life expectancy. (ACR, 2014) Reviewed by: Kelvin Garcia MD on 11/05/2021 4:53 PM PDT Approved by: Kelvin Garcia MD on 11/05/2021 4:53 PM PDT Station ID: [id number]
--- NOTE | 2021-11-05 16:56 | CT Report ---
PROCEDURE: Abdomen/Pelvis WO INDICATIONS: fall, sacral wound TECHNIQUE: Noncontrast 5 mm thick sections acquired from the diaphragms to the symphysis. 5 mm coronal and sagi ttal reformats were then performed. For radiation dose reduction, the following was used: automated exposure control, adjustment of mA and/or kV according to patient size. COMPARISON: None. FINDINGS: Image quality: Excellent. ABDOMEN: Lung bases: Lung bases are clear. Heart size is normal. Solid organs: Liver and spleen are normal in size. Gallbladder is distended. No radiopaque gallston es identified. No gallbladder wall thickening. Pancreas is normal in contours. No adrenal nodules. Kidneys are normal in size, without hydronephrosis or nephrolithiasis. Peritoneum and bowel: Unenhanced bowel loops demonstrate normal wall thickness and caliber. Large a mount of rectal fecal matter. No free fluid or air. Nodes and vessels: No retroperitoneal or mesenteric adenopathy by size criteria. Aorta and inferior vena cava are normal in caliber. Advanced diffuse vascular calcifications. Miscellaneous: Remote ventral hernia repair. PELVIS: Genitourinary: Bladder wall thickness is normal. Miscellaneous: Uterus is surgically absent. There is a fat-containing left inguinal hernia which may potentially be indirect hernia. There is bilateral somewhat bulky inguinal adenopathy. Question react zeinab versus malignant adenopathy. The largest lymph node is on the right. There is a midline posterior sacral wound with a fistula to the tip of the sacrum. Question cortical disruption and lucency at th e level of the coccyx, possibly representing osteomyelitis involving the coccyx. Bones: Question osteomyelitis involving coccyx. Lumbar degenerative change. Findings include severe f oraminal narrowing with nerve root impingement involving the right L4-L5 right L5-S1 foramina. IMPRESSION: 1. Midline posterior sacral decubitus ulcer with extension to the level of the coccyx. 2. Probable associated osteomyelitis of the coccyx. 3. Severe atherosclerotic change. 4. Bilateral enlarged inguinal lymph nodes, question reactive versus malignant. Comment: If desired, the inguinal adenopathy could be evaluated on a nonemergent basis utilizing ultr asound. If ultrasound demonstrates suspicious lymph nodes, inguinal lymph nodes would be easily steve ble to ultrasound-guided fine-needle aspiration. Reviewed by: Jv Vasques MD on 11/05/2021 4:55 PM PDT Approved by: Jv Vasques MD on 11/05/2021 4:55 PM PDT Station ID: [id number]
[2021-11-05 17:06] LABS: GLUCOSE, URINE (UA) NEGATIVE (NEGATIVE); KETONES,URINE (UA) TRACE mg/dL (NEGATIVE); LEUKOCYTE ESTERASE, URINE TRACE (NEGATIVE); NITRITE,URINE NEGATIVE (NEGATIVE); OCCULT BLOOD,URINE TRACE-INTA (NEGATIVE); PH,URINE 5.5 PH (5.0-7.5); PROTEIN,URINE TRACE mg/dL (NEGATIVE); UROBILINOGEN,URINE 0.2 (NORMAL) E.U./dL (NORMAL)
[2021-11-05] MEDS ORDERED: MORPHINE 2 MG/ML CARPUJECT IVP STA (17:07)
[2021-11-05 17:20] LABS: BACTERIA,URINE Moderate /HPF (None Seen); CLARITY,URINE CLEAR (CLEAR); RBC,URINE 0-5 /HPF (0-5); SQUAMOUS EPITHELIAL CELL,UR FEW Squamous (<= Few)
[2021-11-05 17:23] LABS: BILIRUBIN,URINE NEGATIVE (NEGATIVE); ICTOTEST,URINE NEGATIVE
[2021-11-05 17:34] LABS: VBG PCO2 26.2 mmHg (41-51); VBG PH 7.207 (7.31-7.41); VBG PO2 56.4 mmHg (25-47)
[2021-11-05 17:35] LABS: VBG BASE EXCESS -16.2 mmol/L (-2 - +2); VBG HCO3 10.2 mmol/L (23-28); VBG OXYGEN SATURATION 85.2 % (60-80)
[2021-11-05] MEDS ORDERED: GLYCOPYRROLATE 1 MG/5 ML VIAL SUBQ PRN (17:38)
[2021-11-05] MEDS ORDERED: bisacodyL 5 MG TABLET PO PRN (17:38)
[2021-11-05] MEDS ORDERED: LORazepam 2 MG/ML VIAL IVP PRN (17:38)
[2021-11-05] MEDS ORDERED: ONDANSETRON 4 MG/2 ML VIAL IVP PRN (17:38)
[2021-11-05 17:54] LABS: CORONAVIRUS 229E-RESP PCR NOT DETECTED; CORONAVIRUS HKU1-RESP PCR NOT DETECTED; CORONAVIRUS NL63-RESP PCR NOT DETECTED; CORONAVIRUS OC43-RESP PCR NOT DETECTED; HUMAN METAPNEUMOVIRUS NOT DETECTED; INFLUENZA A- RESP PCR PANEL NOT DETECTED; INFLUENZA B - RESP PCR PANEL NOT DETECTED; RHINOVIRUS/ENTEROVIRUS NOT DETECTED; SARS-CoV-2 -RESP PCR PANEL NOT DETECTED
[2021-11-05 17:55] LABS: B. PARAPERTUSSIS- RESP PCR PAN NOT DETECTED; B. PERTUSSIS- RESP PCR PANEL NOT DETECTED; C. PNEUMONIAE- RESP PCR PANEL NOT DETECTED; M. PNEUMONIAE- RESP PCR PANEL NOT DETECTED; PARAINFLUENZA VIRUS 1 NOT DETECTED; PARAINFLUENZA VIRUS 2 NOT DETECTED; PARAINFLUENZA VIRUS 3 NOT DETECTED; PARAINFLUENZA VIRUS 4 NOT DETECTED; RSV- RESP PCR PANEL NOT DETECTED
[2021-11-05] MEDS ORDERED: SCOPOLAMINE PATCH TOP SCH (18:00)
--- NOTE | 2021-11-05 18:25 | HISTORY & PHYSICAL EXAMINATION ---
History and Physical - History and Physical ID/CC: 89 yo female w/dementia, metastatic breast cancer, neuropathy, asthma, and HTN who presented to the ED today after ground level fall. HPI: Pt resides at [facility]. She sustained a ground level fall today and EMS was called. On EMS arrival, BP was 60/30. In ED, it has ranged from 80-90 systolic. She was noted to be lethargic, has anasarca, a sacral wound and a leg wound. She was reportedly seen in ED 1 month ago c/o leg swelling. In the ED, CT of head and C spine were performed. No acute fxs or intracranial process. There was cervical adenopathy, thyroid nodule, and left axillary adenopathy noted. Chest CT showed no fractures, but again note was made of thyroid nodule (possible goiter) and mediastinal lymphadenopathy. CT of the abdomen/pelvic revealed coccyx ulcer extending to the bone w/evidence of osteomyelitis. After ED physician spoke w/patient's son, who is her POA, the decision was made not to pursue aggressive intervention. Admission to hospice for GIP level of care was requested. Pt is not able to provide any history d/t underlying dementia. She does repeatedly yell "ow" during examination of her wounds. ROS: Unable to obtain d/t patient's dementia PMH: Metastatic breast cancer, HER-2 positive, ER positive Asthma Dementia HTN Neuropathy Fam Hx: Son - schizophrenia Soc Hx: Pt resides at [facility] Nonsmoker, no alcohol. Meds: Patient History Medication Instructions Recorded Confirmed Losartan [Cozaar] 50 mg PO DAILY 09/25/21 09/25/21 hydroCHLOROthiazide [Hydrodiuril] 12.5 mg PO DAILY 09/25/21 09/25/21 All: Adhesive tape Exam: Gen: Ill appearing elderly female, alert, confused HEENT: NC, PERRL, EOMI, sclerae anicteric, conjunctivae clear, nares patent, dry mucous membranes NECK: supple, no LAD, thyroid w/o palpable enlargement/nodularity but pt is somewhat uncooperative during exam CHEST: Resp excursions symmetric, CTAB CV: tachycardic, irregular, no M/R/G ABD: soft, NT/ND, BT hypoactive, no HSM/masses EXTR: cool to touch, mottling to both feet, boggy right heel w/early breakdown SKIN: RLE - weepy venous ulcer w/fibrinous exudate to posterior calf, small ulcer to anteromedial butler : excoriation and contact dermatitis noted to inguinal folds, labia erythematous and moderately swollen; coccyx reveals a tunneling ulcer w/fibrinous exudate in the wound bed, no visible bone NEURO: alert, confused, mildly agitated w/cares Labs: Abnormal Lab Results 11/05/21 11/05/21 11/05/21 16:05 16:05 16:05 WBC 11.8 x10^3/uL H x10^3/uL (4.8-10.8) RBC 3.50 10^6/uL L 10^6/uL (4.20-5.40) Hgb 10.9 g/dL L g/dL (12.0-16.0) Hct 32.0 % L % (37.0-47.0) MCH 31.1 pg H pg (27.0-31.0) RDW 15.9 % H % (12.0-15.0) Neut # (Auto) 10.0 10^3/uL H 10^3/uL (1.5-6.6) Lymph # (Auto) 1.0 10^3/uL L 10^3/uL (1.5-3.5) VBG pH VBG pCO2 VBG pO2 VBG HCO3 VBG Total CO2 VBG O2 Saturation VBG Base Excess Sodium 134 mmol/L L mmol/L (135-145) Potassium 3.4 mmol/L L mmol/L (3.5-5.0) Carbon Dioxide 12 mmol/L L* mmol/L (21-32) Anion Gap 20.0 H (6-13) BUN 68 mg/dL H mg/dL (6-20) Creatinine 3.4 mg/dL H mg/dL (0.4-1.0) Estimated GFR (MDRD) 13 L (>89) Lactic Acid 2.6 mmol/L H mmol/L (0.5-2.2) Calcium 8.0 mg/dL L mg/dL (8.5-10.3) B-Natriuretic Peptide Total Protein 5.8 g/dL L g/dL (6.7-8.2) Albumin 2.7 g/dL L g/dL (3.2-5.5) Albumin/Globulin Ratio 0.9 L (1.0-2.2) Ur Specific [place] Ur Leukocyte Esterase Urine WBC Urine Bacteria 11/05/21 11/05/21 11/05/21 16:05 16:58 17:23 WBC RBC Hgb Hct MCH RDW Neut # (Auto) Lymph # (Auto) VBG pH 7.207 L (7.31-7.41) VBG pCO2 26.2 mmHg L mmHg (41-51) VBG pO2 56.4 mmHg H mmHg (25-47) VBG HCO3 10.2 mmol/L L mmol/L (23-28) VBG Total CO2 11.0 mmol/L L mmol/L (24-29) VBG O2 Saturation 85.2 % H % (60-80) VBG Base Excess -16.2 mmol/L L mmol/L (-2 - +2) Sodium Potassium Carbon Dioxide Anion Gap BUN Creatinine Estimated GFR (MDRD) Lactic Acid Calcium B-Natriuretic Peptide 746 pg/mL H pg/mL (5-100) Total Protein Albumin Albumin/Globulin Ratio Ur Specific [place] >=1.030 H (1.002-1.030) Ur Leukocyte Esterase TRACE H (NEGATIVE) Urine WBC 6-10 /HPF H /HPF (0-5) Urine Bacteria Moderate /HPF H /HPF (None Seen) Assessment/Plan: 1. Sepsis 2. Coccygeal osteomyelitis 3. Acute renal failure 4. Anemia 5. Hypoalbuminemia 6. Hypotension Pt presented to the ED w/hypotension, lactic acidosis, coccygeal osteomyelitis a nd acute renal failure. No plans for antibiotic therapy as pt's family is electing hospice/comfort care. Wll admit to GIP level of care for mgmt of pain and wound care. Given her ARF, will use fentanyl IVP for pain. Overall, pt presents with a short prognosis of 24-48 hrs or less.
[2021-11-05] MEDS ORDERED: ZINC OXIDE 20% OINT 30 GM TUBE TOP PRN (20:32)
[2021-11-05] MEDS ORDERED: HALOPERIDOL 5 MG/ML VIAL IVP PRN (20:36)
[2021-11-06] MEDS: fentaNYL 100 MCG/2 ML VIAL IVP PRN ×2 (06:41→20:08)
[2021-11-06] MEDS: HALOPERIDOL 5 MG/ML VIAL IVP SCH ×3 (10:41→22:18)
[2021-11-06] MEDS: fentaNYL 100 MCG/2 ML VIAL IVP SCH ×4 (10:41→22:18)
--- NOTE | 2021-11-06 12:48 | PROVIDER PROGRESS NOTE ---
Progress Note ID/CC: 89 yo female w/dementia, HTN, asthma who was admitted to [facility] level of care last evening d/t sepsis, osteomyelitis of the coccyx, and ARF. She was admitted w/pain and extensive wounds. Subjective: Overnight, pt has become unresponsive again. She did receive one dose of IV fentanyl and one dose of IV haldol. 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 IV fentanyl 25 mcg q4hrs was ordered along w/haldol 1 mg q6h. Hospital RN notes pt is progressively more hypotensive and has had rhonchorous breathing. Objective: Gen: comatose elderly female, audible rales HEENT: NC, dry mucus membranes, face symmetric Chest: coarse rhonchi throughout CV: tachy, difficult to auscultate heart sounds Abd: soft, absent BTs, ND/ND Extr: cool, distal pulses absent Assessment: 1. Sepsis 2. Coccygeal osteomyelitis 3. Acute renal failure 4. Anemia 5. Hypoalbuminemia 6. Hypotension Continue [facility] level of care. Fentanyl increased to q4hrs and haldol increased to q6h. Pt's prognosis appears to be hours.
[2021-11-06 16:12] VITALS: BP 71/31
[2021-11-07] MEDS: fentaNYL 100 MCG/2 ML VIAL IVP SCH ×2 (02:10→06:25)
[2021-11-07] MEDS: HALOPERIDOL 5 MG/ML VIAL IVP SCH (03:58)
--- NOTE | 2021-11-07 09:17 | DISCHARGE SUMMARY ---
Discharge Summary Admit Date: 11/05/21 Discharge Disposition: 20 - DIAGNOSES Admission Diagnoses: 1. Sepsis 2. Coccygeal osteomyelitis 3. Acute renal failure 4. Anemia 5. Hypoalbuminemia 6. Hypotension Discharge Diagnoses with Status of Each Condition: 1. Sepsis 2. Coccygeal osteomyelitis 3. Acute renal failure 4. Anemia 5. Hypoalbuminemia 6. Hypotension - HPI History of Present Illness: Pt resides at [facility]. She sustained a ground level fall on the date of admission and EMS was called. On EMS arrival, BP was 60/30. In ED, it has ranged from 80-90 systolic. She was noted to be lethargic, has anasarca, a sacral wound and a leg wound. She was reportedly seen in ED 1 month ago c/o leg swelling. In the ED, CT of head and C spine were performed. No acute fxs or intracranial process. There was cervical adenopathy, thyroid nodule, and left axillary adenopathy noted. Chest CT showed no fractures, but again note was made of thyroid nodule (possible goiter) and mediastinal lymphadenopathy. CT of the abdomen/pelvic revealed coccyx ulcer extending to the bone w/evidence of osteomyelitis. After ED physician spoke w/patient's son, who is her POA, the decision was made not to pursue aggressive intervention. Admission to hospice for [facility] level of care was requested. Pt was not able to provide any history d/t underlying dementia. She repeatedly yelled "ow" during examination of her wounds. - HOSPITAL COURSE Hospital Course: Pt was admitted to [facility] level of care for management of pain, wound care, and agitation. She received 1liter of IVFs in the ED prior to admission, which did briefly increase her blood pressures. However, she continued to decline and her BPs were noted to be in the 40s-60s systolic on the morning after admisison and she was unresponsive. Due to pain w/cares and some agitation, she was placed on scheduled IV fentanyl and haldol on the morning after admission. She remained unresponsive for the duration of her hospitalization and was reported to have on the morning of 11/07/21. - ALLERGIES Allergies/Adverse Reactions: Allergies Allergy/AdvReac Type Severity Reaction Status Date / Time adhesive tape Allergy Hives Verified 11/05/21 15:47 - MEDICATIONS Home Medications: Ambulatory Orders Medication Instructions Recorded Confirmed Losartan [Cozaar] 50 mg PO DAILY 09/25/21 11/06/21 hydroCHLOROthiazide [Hydrodiuril] 12.5 mg PO DAILY 09/25/21 11/06/21 - LABS Result Diagrams: 11/05/21 16:05 11/05/21 16:05 - SEPSIS Sepsis Criteria: Recorded Heart Rate greater than 90 bpm, MAP less than 65 mmHg, SBP less than 90 mmHg, Renal: urine output less than 0.5ml/kg/hr for 2 hours or creatinine gr, Metabolic: lactate > 2 mmol/L
== END 2021-11-07 08:24 | disposition expired | DRG 871 ==
LOC: EDUNIT# → ED 15:38 → MS2 17:38 → UNDOADMIN 17:38
PROVIDERS: ADMIT Family Medicine; ATTEND Family Medicine
DX: A41.9 Sepsis, unspecified organism (principal); L89.154 Pressure ulcer of sacral region, stage 4; R65.21 Severe sepsis with septic shock; G93.41 Metabolic encephalopathy; M86.18 Other acute osteomyelitis, other site; N17.9 Acute kidney failure, unspecified; E87.2 Acidosis; L97.219 Non-pressure chronic ulcer of right calf with unspecified severity; R60.1 Generalized edema; D64.9 Anemia, unspecified; E88.09 Other disorders of plasma-protein metabolism, not elsewhere classified; I95.9 Hypotension, unspecified; R52 Pain, unspecified; R59.0 Localized enlarged lymph nodes; R41.0 Disorientation, unspecified; Z91.81 History of falling; F03.90 Unspecified dementia, unspecified severity, without behavioral disturbance, psychotic disturbance, mood disturbance, and anxiety; I83.012 Varicose veins of right lower extremity with ulcer of calf; L25.9 Unspecified contact dermatitis, unspecified cause; E04.1 Nontoxic single thyroid nodule; G62.9 Polyneuropathy, unspecified; I10 Essential (primary) hypertension; Z51.5 Encounter for palliative care; Z85.3 Personal history of malignant neoplasm of breast; J45.909 Unspecified asthma, uncomplicated; Z20.822 Contact with and (suspected) exposure to COVID-19
CPT/HCPCS: 36415; 70450; 71250; 72125; 74176; 80053; 80320; 81001; 82803; 83605; 83880; 85025; 87040; 87086; 87633; 93005; 96374; 99285; A9270; J2060; J3490